=== PATIENT | male | born 1955 | race Caucasian/White ===

== ENCOUNTER → 2019-02-14 | Outpatient (CLI) | payer OTHER ==
[2019-02-14 17:22] LABS: ABG BASE EXCESS 1.6 MMOL/L (-2.5-2.5); ABG OXYGEN SATURATION 96 % (94-100); ABG PCO2 37 MMHG (35-45); ABG PH 7.45 (7.37-7.43); ABG PO2 72 MMHG (79-93); ABG TCO2 26.5 MMOL/L (21.0-31.0)
[2019-02-14 17:24] LABS: ALLENS TEST POSITIVE; INSPIRED O2 ROOM AIR; PATIENT TEMP 97.9; VENTILATOR NO
== END ==
LOC: RT 16:37
PROVIDERS: ATTEND Nurse Practitioner Family
DX: R06.00 Dyspnea, unspecified (principal); R06.89 Other abnormalities of breathing; R05 Cough; J30.9 Allergic rhinitis, unspecified; G47.10 Hypersomnia, unspecified; G47.33 Obstructive sleep apnea (adult) (pediatric)
CPT/HCPCS: 36600; 82805

== ENCOUNTER 2019-03-19 20:47 | Outpatient (CLI) | payer OTHER | END 2019-03-20 06:00 | disposition home or self-care (01) | LOC: SLEEP 20:47 | PROVIDERS: ATTEND Nurse Practitioner Family | DX: G47.33 Obstructive sleep apnea (adult) (pediatric) (principal) | CPT/HCPCS: 95811 ==

== ENCOUNTER → 2019-04-02 | Outpatient (CLI) | payer OTHER ==
[~2019-04-02] MED LIST: RT-ALBUTEROL SULF 2.5 MG/3 ML PRE-MIX VIAL INH ONE; RT-ALBUTEROL SULF 2.5 MG/3 ML PRE-MIX VIAL ONE
== END ==
LOC: RT 12:26
PROVIDERS: ATTEND Nurse Practitioner Family
DX: R06.00 Dyspnea, unspecified (principal); J30.9 Allergic rhinitis, unspecified; R06.89 Other abnormalities of breathing; R05 Cough; G47.10 Hypersomnia, unspecified; G47.33 Obstructive sleep apnea (adult) (pediatric)
CPT/HCPCS: 94060; 94726; 94729

== ENCOUNTER 2019-04-19 07:45 | Emergency (ER) | payer OTHER ==
[~2019-04-19] VITALS: Ht 172.7 cm; Wt 117.9 kg
[2019-04-19] MEDS ORDERED: TETRACAINE 0.5% OPHTH SOLN 4 ML BTL (SINGLE DOSE ONLY) OU ONE (08:00)
[2019-04-19] MEDS ORDERED: FLUORESCEIN (FLUOR-I-STRIPS) 1 MG STRP OU ONE (08:00)
--- NOTE | 2019-04-19 08:01 | ED EENT ---
History of Present Illness General Stated Complaint: METAL IN EYE Source: patient, spouse Exam Limitations: no limitations History of Present Illness Date Seen by Provider: April 19, 2019 Time Seen by Provider: 07:48 Initial Comments the patient presents to ER by private conveyance with his and chief complaint of foreign body sensation left eye with redness and irritation itching and pain. 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 He flushed his eye with some eye saline but everyday sensation is only gotten worse. He wears reading glasses but no contacts. Is known to Dr. Mendoza. Allergies and Home Medications Allergies Coded Allergies: No Known Drug Allergies (Unverified , 04/02/19) Patient Home Medication List Home Medication List Reviewed: Yes Review of Systems Review of Systems Constitutional: No chills, No fever Eyes: Denies Blindness; Blurred Vision, Drainage (clear watery), Foreign Body Sensation, Inflammation, Pain; Denies Contact Lenses; Glasses (reading) Ears: Denies Dizziness, Denies Pain Nose: denies clots, denies congestion Mouth: denies clots, denies loose teeth Throat: denies pain, denies swelling Respiratory: No cough, No short of breath Past Caqcmpw-Mwdjtu-Ntribb Hx Patient Social History Alcohol Use: Occasionally Uses Recreational Drug Use: No Smoking Status: Current Someday Smoker Type Used: Smokeless Tobacco 2nd Hand Smoke Exposure: No Recent Foreign Travel: No Contact w/Someone Who Travel: No Physical Exam Height, Weight, BMI Height: '" Weight: lbs. oz. kg; BMI Method: General Appearance: WD/WN, no apparent distress Eyes: right eye normal inspection; bilateral eye PERRL, bilateral eye EOMI Ears: bilateral ear auricle normal, bilateral ear canal normal Nose: normal inspection; No active bleeding Mouth/Throat: normal mouth inspection, pharynx normal Cardiovascular: normal peripheral pulses, regular rate, rhythm Neurologic/Psychiatric: alert, normal mood/affect, oriented x 3 Progress/Results/Core Measures Results/Orders My Orders Orders - FRANCES HILTON Tetracaine 0.5% Ophth Rachael Sdv (Tetracai (04/19/19 08:00) Fluorescein Strips ([id number]) (04/19/19 08:00) Medications Given in ED Current Medications Medications Dose Ordered Sig/Chidi Route Start Time Stop Time Status Last Admin Dose Admin Fluorescein Sodium 1 mg ONCE ONCE OU 04/19/19 08:00 04/19/19 08:01 DC 04/19/19 08:01 1 MG Tetracaine HCl 4 ml ONCE ONCE OU 04/19/19 08:00 04/19/19 08:01 DC 04/19/19 08:02 4 ML Progress Progress Note : Time: 08:20 Progress Note Using a Patterson lamp and fluoroscopy seen stain we were able to see edema lateral and medial to the iris but no specific abrasion. We did not see a foreign body. The patient did have improvement in his pain after application of the tetracaine. We discussed the case with Dr. Freitas, Optometry and he says just have the patient, to the clinic and he will see the patient. Departure Impression Primary Impression: Foreign body, eye Qualified Codes: T15.92XA - Foreign body on external eye, part unspecified, left eye, initial encounter Disposition: 01 HOME, SELF-CARE Condition: Stable Departure-Patient Inst. Decision time for Depature: 08:23 Referrals: YUAN MENDOZA OD, MARY L DO (PCP) Primary Care Physician Patient Instructions: Corneal Abrasion (DC) Add. Discharge Instructions: Please follow-up with Dr. Mendoza by showing up at his office and he will see you this morning. FRANCES HILTON April 19, 2019 08:01
[2019-04-19] MEDS ORDERED: EXEN2PEN (08:17)
[2019-04-19] MEDS ORDERED: METF500T8 (08:17)
[2019-04-19] MEDS ORDERED: LOSA50TA63 (08:17)
[2019-04-19 08:32] VITALS: BP 156/83
--- OUTSIDE RECORDS SUMMARY | 2019-04-19 12:13 | XMS REPORT | Continuity of Care Document ---
Author Organization Unknown Address Unknown Allergies Active Description Code Type Severity Reaction Onset Reported/Identified Relationship to Patient Clinical Status Yes No Known Drug Allergies [id number] Drug Allergy Unknown N/A 04/02/2019 Medications There is no data. Problems Date Dx Coded Attending Type Code Diagnosis Diagnosed By 02/15/2019 ANIYAH, JOHN E OYSTER CULLER Ot G47.10 HYPERSOMNIA, UNSPECIFIED 02/15/2019 ANIYAH, JOHN E OYSTER CULLER Ot G47.33 OBSTRUCTIVE SLEEP APNEA (ADULT) (PEDIATR 02/15/2019 ANIYAH, JOHN E OYSTER CULLER Ot J30.9 ALLERGIC RHINITIS, UNSPECIFIED 02/15/2019 ANIYAH, JOHN E OYSTER CULLER Ot R05 COUGH 02/15/2019 ANIYAH, JOHN E OYSTER CULLER Ot R06.00 DYSPNEA, UNSPECIFIED 02/15/2019 ANIYAH, JOHN E OYSTER CULLER Ot R06.89 OTHER ABNORMALITIES OF BREATHING 03/20/2019 ANIYAH, JOHN E OYSTER CULLER Ot G47.33 OBSTRUCTIVE SLEEP APNEA (ADULT) (PEDIATR 03/20/2019 ANIYAH, JOHN E OYSTER CULLER Ot G47.33 OBSTRUCTIVE SLEEP APNEA (ADULT) (PEDIATR 04/03/2019 ANIYAH, JOHN E OYSTER CULLER Ot G47.10 HYPERSOMNIA, UNSPECIFIED 04/03/2019 ANIYAH, JOHN E OYSTER CULLER Ot G47.33 OBSTRUCTIVE SLEEP APNEA (ADULT) (PEDIATR 04/03/2019 ANIYAH, JOHN E OYSTER CULLER Ot J30.9 ALLERGIC RHINITIS, UNSPECIFIED 04/03/2019 ANIYAH, JOHN E OYSTER CULLER Ot R05 COUGH 04/03/2019 ANIYAH, JOHN E OYSTER CULLER Ot R06.00 DYSPNEA, UNSPECIFIED 04/03/2019 ANIYAH, JOHN E OYSTER CULLER Ot R06.89 OTHER ABNORMALITIES OF BREATHING 04/03/2019 ANIYAH, JOHN E OYSTER CULLER Ot G47.10 HYPERSOMNIA, UNSPECIFIED 04/03/2019 ANIYAH, JOHN E OYSTER CULLER Ot G47.33 OBSTRUCTIVE SLEEP APNEA (ADULT) (PEDIATR 04/03/2019 JOHN DILL APRN Ot J30.9 ALLERGIC RHINITIS, UNSPECIFIED 04/03/2019 JOHN DILL APRN Ot R05 COUGH 04/03/2019 JOHN DILL APRN Ot R06.00 DYSPNEA, UNSPECIFIED 04/03/2019 JOHN DILL APRN Ot R06.89 OTHER ABNORMALITIES OF BREATHING Procedures There is no data. Results Test Result Range Arterial blood gas measurement - 02/14/19 17:12 Blood pCO2 37 mm[Hg] 35-45 Blood pO2 72 mm[Hg] 79-93 Arterial blood bicarbonate measurement (moles/volume) 25 mmol/L 23-27 Arterial blood base excess by calculation 1.6 mmol/L -2.5-2.5 Arterial blood oxygen saturation measurement 96 % 94-100 * Inhaled oxygen flow rate ROOM AIR NRG Arterial blood pH measurement with patient temperature correction 7.45 7.37-7.43 Arterial blood carbon dioxide, total measurement (moles/volume) 26.5 mmol/L 21.0-31.0 Body site RIGHT RADIAL NRG Assessment of wrist artery patency prior to arterial puncture POSITIVE NRG Setting of ventilation mode NO NRG Measurement of body temperature 97.9 NRG Encounters ACCT No. Visit Date/Time Discharge Status Pt. Type Provider Facility Loc./Unit Complaint [id number] 04/03/2019 20:00:00 04/03/2019 23:59:59 CLS Preadmit EMMETT OHARA DO [facility] SLEEP G47.33 FARHAT [id number] 04/02/2019 12:26:00 04/02/2019 23:59:59 CLS Outpatient JOHN DILL APRN [facility] RT COUGH,DYSPNEA [id number] 03/19/2019 20:47:00 03/20/2019 06:00:00 DIS Outpatient JOHN DILL APRN [facility] SLEEP SLEEP DISORDER [id number] 02/14/2019 16:37:00 02/14/2019 23:59:59 CLS Outpatient JOHN DILL APRN [facility] RT DYSPNEA [id number] 04/19/2019 07:46:00 ACT Emergency LIDA LINARES, FRANCES Almendarez [facility] ER METAL IN EYE
== END 2019-04-19 08:32 | disposition home or self-care (01) ==
LOC: EDUNIT# 07:45 → ER 07:46
DX: T15.92XA Foreign body on external eye, part unspecified, left eye, initial encounter (principal); F17.200 Nicotine dependence, unspecified, uncomplicated
CPT/HCPCS: 99281

== ENCOUNTER 2020-06-02 08:26 | Outpatient (RCR) | payer OTHER ==
[~2020-06-02 08:26] MED LIST changes: +EXEN2PEN; +LOSA50TA63; +METF-865; -RT-ALBUTEROL SULF 2.5 MG/3 ML PRE-MIX VIAL INH ONE; -RT-ALBUTEROL SULF 2.5 MG/3 ML PRE-MIX VIAL ONE
== END 2020-07-24 09:05 | disposition home or self-care (01) ==
PROVIDERS: ATTEND Student in an Organized Health Care Education/Training Program
DX: R42 Dizziness and giddiness (principal)